=== PATIENT | male | born 1985 | race Caucasian/White ===

== ENCOUNTER 2018-10-20 12:23 | Emergency (ER) | payer OTHER ==
[~2018-10-20] VITALS: Ht 185.4 cm; Wt 102.3 kg
[2018-10-20 12:37] VITALS: BP 133/70
[2018-10-20] MEDS ORDERED: ZOLO100T PO (12:57)
[2018-10-20] MEDS ORDERED: XANA2TAB2 PO ×2 (12:57→14:46)
[2018-10-20] MEDS ORDERED: OXYC1TAB23 PO ×2 (12:57→14:46)
[2018-10-20] MEDS ORDERED: REME30TA PO (12:57)
== END 2018-10-20 14:54 | disposition home or self-care (01) ==
LOC: M ED 12:23
DX: Z76.0 Encounter for issue of repeat prescription (principal); G89.29 Other chronic pain; M79.606 Pain in leg, unspecified; F41.9 Anxiety disorder, unspecified; Z79.899 Other long term (current) drug therapy

== ENCOUNTER 2019-05-12 17:12 | Emergency (ER) | payer OTHER ==
[~2019-05-12] VITALS: Ht 182.9 cm; Wt 127.7 kg
[~2019-05-12 17:12] MED LIST: OXYC1TAB23 PO; REME30TA PO; XANA2TAB2 PO; ZOLO100T PO
[2019-05-12] MEDS ORDERED: IBUPROFEN 800 MG TAB PO ONE (18:15)
[2019-05-12] MEDS ORDERED: ADACEL/BOOSTRIX VACCINE (DIPHTH/PERTUSS/ACELL/TETANUS)0.5ML SYR (90715) IM ONE (18:15)
--- NOTE | 2019-05-12 19:24 | REP ---
RIGHT FIRST DIGIT, FOUR VIEWS: Four views of the right first digit performed. No acute fracture or dislocation is seen. No radiopaque foreign body is seen. IMPRESSION: Negative exam right first digit. Electronically Signed by Enmanuel Agosto MD 05/13/2019 02:31 P
--- NOTE | 2019-05-12 19:25 | REP ---
LEFT HAND, FOUR VIEWS: There is no evidence of an acute fracture, dislocation or intrinsic bone disease. IMPRESSION: No fracture or dislocation. Electronically Signed by Enmanuel Agosto MD 05/13/2019 02:31 P
[2019-05-12] MEDS ORDERED: LIDOCAINE 2% MDV 20 ML VIAL SC ONE (20:00)
[2019-05-12] MEDS ORDERED: AUGM875T28 PO (21:10)
[2019-05-12 21:12] VITALS: BP 134/70
[2019-05-12] MEDS ORDERED: NORCO 5/325MG TABLET (BULK FOR ED) PO ONE (21:15)
[2019-05-12] MEDS ORDERED: NEOSPORIN OINT 0.9 GM PKT (FLOOR STOCK) TOP ONE (21:15)
[2019-05-12] MEDS ORDERED: AUGMENTIN 875 MG TAB PO ONE (21:30)
== END 2019-05-12 21:36 | disposition home or self-care (01) ==
LOC: M ED 17:12
DX: S61.451A Open bite of right hand, initial encounter (principal); S61.452A Open bite of left hand, initial encounter; S61.051A Open bite of right thumb without damage to nail, initial encounter; S61.251A Open bite of left index finger without damage to nail, initial encounter; W54.0XXA Bitten by dog, initial encounter; Y92.098 Other place in other non-institutional residence as the place of occurrence of the external cause; F41.9 Anxiety disorder, unspecified; F43.10 Post-traumatic stress disorder, unspecified
CPT/HCPCS: 12004; 73130; 73140; 90471; 90715; 99284; G0463

== ENCOUNTER 2019-05-14 13:17 | Emergency (ER) | payer OTHER ==
[~2019-05-14] VITALS: Ht 182.9 cm; Wt 128.0 kg
[~2019-05-14 13:17] MED LIST changes: +AUGM875T28 PO
[2019-05-14] MEDS ORDERED: KETOROLAC 60 MG/2 ML VIAL (J1885) IM ONE (14:15)
[2019-05-14 14:22] LABS: HEMATOCRIT 49.8 % (42.0-52.0); HEMOGLOBIN 15.9 g/dl (13.5-17.5); MEAN CORPUSCULAR HEMOGLOBIN 27.7 pg (27.0-33.0); MEAN CORPUSCULAR HGB CONC 31.9 g/dl (32.0-36.5); MEAN CORPUSCULAR VOLUME 86.8 fl (80.0-96.0); PLATELET COUNT, AUTOMATED 410 10^3/uL (150-450); RED BLOOD COUNT 5.74 10^6/uL (4.30-6.10); WHITE BLOOD COUNT 13.7 10^3/uL (4.0-10.0)
[2019-05-14 14:46] LABS: BLOOD UREA NITROGEN 13 MG/DL (7-18); CALCIUM LEVEL 9.7 MG/DL (8.5-10.1); CARBON DIOXIDE LEVEL 28 MEQ/L (21-32); CHLORIDE LEVEL 106 MEQ/L (98-107); CREATININE FOR GFR 1.01 MG/DL (0.70-1.30); GLOMERULAR FILTRATION RATE > 60.0 (>60); GLUCOSE, FASTING 84 MG/DL (70-100); POTASSIUM SERUM 4.5 MEQ/L (3.5-5.1); SODIUM LEVEL 137 MEQ/L (136-145)
--- NOTE | 2019-05-14 14:56 | REP ---
Pain due to dog bite. PRIORS: None. Only AP and lateral views were obtained. Two view series cannot rule out a fracture. No gross fracture is identified. There is no evidence of a radiopaque foreign body. There might be diffuse soft tissue swelling, however, I do not know the patient's generalized body habitus. Electronically Signed by Tao Andrade DO 05/14/2019 03:07 P
[2019-05-14 15:07] LABS: ERYTHROCYTE SEDIMENTATION RATE 5 mm/hr (0-15)
[2019-05-14 15:11] LABS: ATYPICAL LYMPH 2 % (0-5); BASOPHILS 1 % (0-1); LYMPHOCYTES 36 % (19-44); MONOCYTES 7 % (0-5); NEUTROPHILS 53 % (28-66); PLATELET ESTIMATE NORMAL (NORMAL)
[2019-05-14] MEDS ORDERED: KETO10TAB PO (15:22)
[2019-05-14 15:32] VITALS: BP 122/59
== END 2019-05-14 15:41 | disposition home or self-care (01) ==
LOC: M ED 13:17
DX: S61.452A Open bite of left hand, initial encounter (principal); W54.0XXA Bitten by dog, initial encounter; Y92.89 Other specified places as the place of occurrence of the external cause
CPT/HCPCS: 36415; 73120; 80048; 85025; 85652; 86140; 87040; 87070; 96372; 99283; J1885

== ENCOUNTER 2019-05-23 16:45 | Emergency (ER) | payer OTHER ==
[~2019-05-23] VITALS: Ht 182.9 cm; Wt 125.0 kg
[2019-05-23 16:45] VITALS: BP 127/72
[~2019-05-23 16:45] MED LIST changes: +KETO10TAB PO
[2019-05-23] MEDS ORDERED: CLEO300C2 PO (17:32)
[2019-05-23] MEDS ORDERED: PERCOCET 5MG/325MG TAB PO ONE (17:45)
== END 2019-05-23 17:49 | disposition home or self-care (01) ==
LOC: M ED 16:45
DX: Z48.02 Encounter for removal of sutures (principal); F41.9 Anxiety disorder, unspecified

== ENCOUNTER → 2019-07-24 | Outpatient (CLI) | payer OTHER ==
[~2019-07-24] MED LIST changes: +CLEO300C2 PO
--- NOTE | 2019-08-11 06:01 | ECWPNPC ---
PATIENT NAME: LIUDMILA CASTANO : 1985 GENDER: MALE VISIT DATE: 07/24/2019 DISCHARGE DATE: 07/24/19 1630 VISIT LOCKED DATE TIME: PHYSICIAN: REJI TAY MD RESOURCE: REJI TAY MD REASON FOR APPOINTMENT 1. CHRONIC RIGHT HIP PAIN HISTORY OF PRESENT ILLNESS PAIN SCREENING: PATIENT HAS A COMPLAINT OF ACUTE OR CHRONIC PAIN :YES 33 YEAR OLD MALE PATIENT WITH A HISTORY OF CHRONIC RIGHT HIP PAIN. THE PATIENT DESCRIBES THE PAIN ACHING, SHARP, STABBING, AND CONTINUOUS WITH A PAIN SCORE OF 4-9/10 DEPENDING ON PHYSICAL ACTIVITY. THE PATIENT STATES HIS PAIN BEGAN IN 2012 WHILE SERVING A [employer] FOR THE [employer], WHERE HE PERFORMED NUMEROUS RIGOROUS ACTIVITIES AND EXPERIENCED A TRAUMA TO HIS RIGHT HIP AND LEG AFTER JUMPING OUT OF A HELICOPTER. 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 THE PATIENT SAYS HE HAS RECEIVED HIP INJECTIONS IN THE PAST THAT DID NOT OFFER MUCH PAIN RELIEF FOR HIM. THE PATIENT SAYS HE WAS SEEN BY A SURGEON WHO SUGGESTED A HIP RESURFACE SURGERY BUT ADVISED HE IS TOO YOUNG FOR HIP REPLACEMENT SURGERY. PATIENT DENIES UNEXPLAINABLE WEIGHT LOSS, FEVER, CHILLS, NEW CHANGES ON HIS URINARY OR BOWEL CONTROL. FALL RISK SCREENING: SCREENING :NO FALLS REPORTED IN THE LAST YEAR CURRENT MEDICATIONS NOT-TAKING PERCOCET 5-325 MG TABLET 1 TABLET NEEDED ORALLY EVERY 6 HRS MEDICATION LIST REVIEWED AND RECONCILED WITH THE PATIENT PAST MEDICAL HISTORY RIGHT HIP PAIN ALLERGIES CATS: SNEEZING - ALLERGY SURGICAL HISTORY DENIES PAST SURGICAL HISTORY FAMILY HISTORY PT IS ADOPTED, FAMILY HX UNKNOWN. SOCIAL HISTORY GENERAL: TOBACCO USE ARE YOU A:NONSMOKER PAIN CLINIC PFS, CLERGY, PUBLIC HEALTH REFERRALS HAS THE PATIENT BEEN EDUCATED REGARDING HIS/HER PLAN OF CARE?YES HAS THE PATIENT BEEN EDUCATED REGARDING PAIN, THE RISK FOR PAIN, THE IMPORTANCE OF EFFECTIVE PAIN MANAGEMENT, AND THE PAIN ASSESSMENT PROCESS?YES ADVANCE DIRECTIVE ADVANCE DIRECTIVE DISCUSSED WITH PATIENT:YES DECLINED JEWISH [id number] OTHER LANGUAGE LANGUAGES SPOKEN:LITHUANIAN LEARNING BARRIERS / SPECIAL NEEDS BARRIERS TO LEARNING?NO HEARING IMPAIRED?NO VISION IMPAIRED?YES :CORRECTIVE LENSES COGNITIVELY IMPAIRED?NO READINESS TO LEARN?YES LEARNING PREFERENCES?NO LEARNING CAPABILITIES PRESENT?YES EMOTIONAL BARRIERS?NO SPECIAL DEVICES?NO HOSPITALIZATION/MAJOR DIAGNOSTIC PROCEDURE RIGHT HAND INFECTION 2013 REVIEW OF SYSTEMS REVIEWED BY: PROVIDER: . CONSTITUTIONAL: ANY CHANGE IN YOUR MEDICAL CONDITION? NO . CHILLS NO . FEVER NO . INFECTION: DO YOU HAVE NEW INFECTIONS? NO . DO YOU HAVE HISTORY OF MRSA? NO . MUSCULOSKELETAL: ANY NEW PATTERNS OF PAIN OR NUMBNESS? NO . SYTEMIC LUPUS NO . GASTROENTEROLOGY: ANY NEW CHANGE IN BOWEL CONTROL? NO . BARRETTS ESOPHAGUS NO . CIRRHOSIS NO . HEPATITIS NO . LIVER FAILURE NO . ACID REFLUX NO . UNEXPLAINED WEIGHT LOSS NO . GENITOURINARY: ANY NEW CHANGE IN BLADDER CONTROL? NO . IS THERE A CHANCE YOU COULD BE ? NO . HEMATOLOGY/LYMPH: DO YOU TAKE ANY BLOOD THINNERS? (FOR EXAMPLE- COUMADIN, PLAVIX, AGGRENOX, PLATEL, PRADAXA, OR XARELTO) NO . WHEN WAS YOUR LAST DOSE? DATE: TIME: . LOW PLATELET COUNT NO . SICKLE CELL DISEASE NO . VON WILLIEBRANDS NO . FACTOR V LEIDEN NO . THALLASEMIA NO . ANEMIA NO . EASY BRUISING NO . NEUROLOGY: HAVE YOU FALLEN IN THE PAST 12 MONTHS? YES, FELL 2 MOS AGO FROM WEAKNESS PT DENIES INJURIES . ANY NEW EXTREMITY NUMBNESS OR WEAKNESS? YES, RIGHT LEG WEAKNESS . HEAD INJURY NO . DEMENTIA NO . CEREBRAL PALSY NO . MULTIPLE SCLEROSIS NO . DIZZINESS NO . HEADACHE NO . STROKES NO . VERTIGO NO . CARDIOLOGY: DO YOU HAVE A PACEMAKER OR DEFIBRILLATOR? NO . ANGINA NO . HEART ATTACK NO . HEART SURGERY NO . CONGESTIVE HEART FAILURE/FLUID OVERLOAD NO . CHEST PAIN NO . HIGH BLOOD PRESSURE NO . IRREGULAR HEART BEAT NO . RESPIRATORY: HAVE YOU BEEN SICK IN THE PAST WEEK? NO . FEVER NO . FLU LIKE SYMPTOMS? NO . CPAP NO . BYPAP NO . ASTHMA NO . EMPHYSEMA NO . CHRONIC LUNG DISEASES NO . SHORTNESS OF BREATH ON EXERTION NO . COUGH NO . SNORING NO . INTEGUMENTARY: DO YOU HAVE ANY RASHES OR OPEN SORES? NO . ALLERGIC/IMMUNO: ARE YOU ALLERGIC TO IV DYE? NO . ANY NEW ALLERGIES? NO . PSYCHIATRIC: DO YOU HAVE THOUGHTS OF HURTING YOURSELF OR SOMEONE ELSE? NO . ARE YOU ABUSED, NEGLECTED, OR IN AN UNSAFE ENVIRONMENT? NO . ENDOCRINOLOGY: ARE YOU DIABETIC? NO . THYROID DISORDER NO . OTHER: DO YOU NEED ANY PRESCRIPTIONS? NO . IF YES, PLEASE LIST: ____ . ANY NEW PROBLEMS WITH YOUR MEDICATIONS? NO . WHEN DID YOU LAST EAT? ____ . WHEN DID YOU LAST DRINK? ____ . WHAT DID YOU LAST DRINK? ____ . NAME OF PERSON DRIVING YOU HOME? ____ . DO YOU HAVE ANY OTHER QUESTIONS OR CONCERNS NO . VITAL SIGNS WT 275.0 LBS, HT 73 IN, BMI 36.28 INDEX, BP 139/78 MM HG, HR 85 /MIN, RR 18 /MIN, TEMP 99.2 F, OXYGEN SAT % 99%, NA INITIALS AW 1511, REVIEWED BY: EM. EXAMINATION GENERAL EXAMINATION: PATIENT IS ALERT O X 3 AND COOPERATIVE. LUNGS CLEAR, TO AUSCULTATION. HEART: NO MURMURS OR GALLOPS; FACIAL CRANIAL NERVES ARE GROSSLY NORMAL. GOOD SYMMETRY OF FACIAL MUSCLE MOVEMENT. NORMAL VISUAL MONTALVO. ANTALGIC WALK. PATIENT IS LIMPING FROM THE RIGHT LEG. TENDERNESS OVER RIGHT HIP AREA. ABDUCTION MOVEMENT OF THE RIGHT HIP REPRODUCES PAIN. MRI OF RIGHT HIP SHOWS OSTEOARTHRITIS. ASSESSMENTS RIGHT HIP PAIN - M25.551 (PRIMARY) OSTEOARTHRITIS OF RIGHT HIP, UNSPECIFIED OSTEOARTHRITIS TYPE - M16.11 TREATMENT RIGHT HIP PAIN CLINICAL NOTES: WE DISCUSSED SEVERAL ISSUES WITH MR. CASTANO' PAIN MANAGEMENT CASE. I WOULD LIKE TO REFER THE PATIENT TO [facility] TO CONSIDER TREATMENT OPTIONS FOR HIS RIGHT HIP PAIN. I DISCUSSED WITH THE PATIENT THAT I MAY CONSIDER PERFORMING A HIP INJECTION IN THE FUTURE. DEPENDING ON THE HIP INJECTION RESULTS, I MAY TRY COOL RADIOFREQUENCY IN THE FUTURE. I WILL ALSO REFER THE PATIENT TO [facility]'S PALLIATIVE CARE STAR PROGRAM FOR MEDICATION MANAGEMENT. THE PATIENT WILL FOLLOW UP WITH THE NURSE PRACTITIONER IN 2-3 MONTHS. INSTRUCTIONS WERE GIVEN, QUESTIONS WERE ANSWERED, PATIENT REPORTS UNDERSTANDING AND AGREES WITH THE PLAN. I, HEDY OLMOS, DOCUMENTED THE ABOVE INFORMATION ACTING A SCRIBE FOR DR. TAY. I HAVE REVIEWED THE ABOVE DOCUMENT, WRITTEN BY HEDY VALIENTE AND I VERIFY THAT IT IS ACCURATE. [facility]: THANK YOU FOR YOUR KIND REFERRAL OF LIUDMILA CASTANO. IF YOU WANT TO DISCUSS HIS CASE WITH ME PLEASE CALL ME AT THE PAIN CENTER AT [phone]. SINCERELY, REJI TAY MD PAIN MEDICINE . PROCEDURE CODES FA211 ESTABILISHED PATIENT [facility] FACILITY CHARGE [id number] CURRENT MEDS W/DOSAGES DOCUMENTED [id number] PAIN ASSESS POS TOOL F/U PLAN DOC DISPOSITION & COMMUNICATION FOLLOW UP 2-3 MONTHS (REASON: REFER TO [facility] TO CONSIDER RT HIP INJECTIONS, F/UP WITH WAREHOUSE HANDLER, REFER TO PALLIATIVE CARE FOR MED MANAGE) ELECTRONICALLY SIGNED BY REJI TAY MD, ON 08/10/2019 AT 05:35 PM EST DISCLAIMER : THIS IS A VISIT SUMMARY EXTRACTED FROM THE [employer] CHART. IT IS NOT A COPY OF THE [employer] PROGRESS NOTE. MTDD
== END ==
LOC: M PAIN 15:00
PROVIDERS: ATTEND Anesthesiology
DX: M25.551 Pain in right hip (principal); M16.11 Unilateral primary osteoarthritis, right hip; G89.29 Other chronic pain; Z79.899 Other long term (current) drug therapy

== ENCOUNTER 2019-08-14 07:50 | Emergency (ER) | payer OTHER ==
[~2019-08-14] VITALS: Ht 182.9 cm; Wt 121.8 kg
--- NOTE | 2019-08-14 08:28 | REP ---
Left elbow series: Four views. History: Lifting injury. Pain. Findings: Four views of the left elbow demonstrate normal bones, joints and soft tissues. There is no evidence of fracture, subluxation, or joint effusion. Impression: Negative left elbow radiographs. Electronically Signed by Kane Mejía MD 08/14/2019 08:19 A
--- NOTE | 2019-08-14 08:29 | REP ---
Left forearm: Two views. History: Pain after lifting injury. Findings: AP and lateral views of the left forearm demonstrate normal bones, joints, and soft tissues. Impression: Negative radiographs of the left forearm. Electronically Signed by Kane Mejía MD 08/14/2019 08:20 A
[2019-08-14] MEDS ORDERED: KETOROLAC 60 MG/2 ML VIAL (J1885) IM ONE (09:30)
[2019-08-14] MEDS ORDERED: ACETAMINOPHEN 325 MG TAB PO ONE (09:30)
[2019-08-14 09:47] VITALS: BP 136/72
[2019-08-14] MEDS ORDERED: KETO10TAB PO (10:26)
== END 2019-08-14 10:40 | disposition home or self-care (01) ==
LOC: M ED 07:50
DX: S53.442A Ulnar collateral ligament sprain of left elbow, initial encounter (principal); X58.XXXA Exposure to other specified factors, initial encounter; Y92.89 Other specified places as the place of occurrence of the external cause
CPT/HCPCS: 73080; 73090; 96372; 99283; J1885

== ENCOUNTER → 2020-08-23 | Outpatient (REF) | payer OTHER ==
[~2020-08-23] MED LIST changes: +MIRT-60 PO; -REME30TA PO
== END ==
LOC: M LAB REF 11:59
PROVIDERS: ATTEND Physician Assistant
DX: R21 Rash and other nonspecific skin eruption (principal); Z20.2 Contact with and (suspected) exposure to infections with a predominantly sexual mode of transmission

== ENCOUNTER → 2020-08-23 | Outpatient (CLI) | payer OTHER ==
[2020-08-23 17:52] LABS: HIV 1&2 SCREEN CENTAUR NEGATIVE (NEGATIVE)
[2020-08-25 10:08] LABS: HSV TYPE I IgG SPECIFIC <0.91 index (0.00-0.90); HSV TYPE II IgG SPECIFIC <0.91 index (0.00-0.90)
== END ==
LOC: M WUC 10:53
PROVIDERS: ATTEND Physician Assistant
DX: R21 Rash and other nonspecific skin eruption (principal); Z20.2 Contact with and (suspected) exposure to infections with a predominantly sexual mode of transmission

== ENCOUNTER → 2020-09-12 | Outpatient (REF) ==
[~2020-09-12] MED LIST changes: +OXYC-517 PO
[2020-09-14 12:16] LABS: RSV AMPLIFICATION NEGATIVE (NEGATIVE)
== END ==
LOC: M LAB 09:02